=== PATIENT | female | born 1995 | race Caucasian/White ===

== ENCOUNTER → 2018-08-28 | Outpatient (CLI) | payer OTHER, BC ==
[~2018-08-28] MED LIST: ACET500T68 PO; BCP; HYDR-4309 PO; INSU300I SUBQ; LANI SUBQ; LOR5/325 PO; NO MEDS; NORG1TAB5 PO; NOVOLOG SUBQ; ONDA4TAB PO; OXYC-865 PO; PER PO
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
== END ==
LOC: RAD 10:23
PROVIDERS: ATTEND Physician Assistant
DX: M54.2 Cervicalgia (principal); M62.838 Other muscle spasm
CPT/HCPCS: 72040

== ENCOUNTER 2019-04-07 20:15 | Emergency (ER) | payer BC ==
[~2019-04-07 20:15] MED LIST changes: -HYDR-4309 PO; +HYDR-653 PO
[2019-04-07 20:29] VITALS: BP 134/77
[2019-04-07] MEDS ORDERED: ESCI20TA38 PO (20:36)
--- NOTE | 2019-04-07 20:39 | ER Report ---
History and Physical Time Seen By MD: 20:35 Hx. of Stated Complaint: TRIPPED ON SECOND BASE WHILE RUNNING IN SOFTBALL GAME. TWISTED LEFT KNEE HPI/ROS CHIEF COMPLAINT: Knee pain HISTORY OF PRESENT ILLNESS: This is a 23-year-old female who presents to the emergency department for knee pain. Patient states that about 45 minutes prior to arrival, she was playing softball, was rounding 2nd base, fell down landing on her left knee, she states "it felt like it came out of socket again back in". She also has mild tenderness to the left medial malleolus. No obvious deformities, no bruising, mild swelling to the left knee. No nausea or vomiting. No chest pain or shortness breath. REVIEW OF SYSTEMS: Respiratory: No cough, no dyspnea. Cardiovascular: No chest pain, no palpitations. Gastrointestinal: No vomiting, no abdominal pain. Musculoskeletal: As above. Allergies: Coded Allergies: No Known Drug Allergies (Verified , 04/07/19) Home Meds Reported Medications Escitalopram Oxalate (LEXAPRO) 20 Mg Tablet, 20 MG PO QDAY, TAB 04/07/19 Insulin Glargine,Hum.rec.anlog (Toujeo Solostar) 300 Unit/1 Ml Insuln.pen, 16 UNIT SUBQ QAM 10/07/16 Insulin Aspart (NOVOLOG) 100 Unit/Ml Soln, 100 UNIT SUBQ 09/17/15 Discontinued Scripts Oxycodone Hcl/Acetaminophen (PERCOCET 5-325 MG TABLET) 1 Each Tablet, 1 EACH PO Q4H PRN for PAIN, #20 Prov:JEN ALEJANDRO DO 10/07/16 Past Medical/Surgical History The patient has a past medical and surgical history of tonsillectomy, jaw fracture, type I diabetes, depression, anxiety. Reviewed Nurses Notes: Yes Hx Smoking: No Smoking Status: Never Smoker Constitutional Vital Sign - Last 24 Hours 04/07/19 20:29 Temp 99.3 Pulse 76 Resp 14 B/P (MAP) 134/77 Pulse Ox 95 O2 Delivery Room Air Physical Exam General Appearance: The patient is alert, has no immediate need for airway pro tection and no current signs of toxicity. Eyes: Pupils equal and round no injection. Respiratory: Chest is non tender, lungs are clear to auscultation. Cardiac: regular rate and rhythm. Gastrointestinal: Abdomen is soft and non tender, no masses, bowel sounds normal. Musculoskeletal: Neck: Neck is supple and non tender. Extremities positive straight leg raise on the left, pain to the lateral and medial knee, no obvious deformities, no crepitus, no pain over the tibial plateau. Pain to the left medial malleolus, no crepitus or deformities. Skin: No rashes or lesions. DIFFERENTIAL DIAGNOSIS: After history and physical exam differential diagnosis was considered for contusion, fracture, sprain anterior cruciate ligament, PCL tear. Medical Decision Making EKG/Imaging Imaging PATIENT NAME: Leticia Sen : 1995 MR: [id number] V: [id number] EXAM DATE: ORDERING PHYSICIAN: MAREN MAYEN TECHNOLOGIST: Location: [facility] [place] Patient: Leticia Sen : 1995 Visit/Account:[id number] Date of Sevice: 04/07/2019 Examination: KNEE 4 VIEW LEFT Comparison: None. History: fall, pain Findings: No fracture. Alignment and joint spaces are normal. No joint effusion. Soft tissues are unremarkable. IMPRESSION: Negative left knee. Report Dictated By: Tom Cruz MD at 04/07/2019 10:41 PM Report E-Signed By: Tom Cruz MD at 04/07/2019 10:42 PM WSN:[id number] ED Course/Re-evaluation ED Course The patient was admitted to room. A history and physical obtained. Differential diagnoses were considered. Patient was given 60 mg IM Norflex, 800mg by mouth ibuprofen. An x-ray of the left knee and ankle were obtained, both were negative for any acute osseous abnormalities. I did review the results with the patient and her family the bedside, I did place the patient in a knee immobilizer, she was given crutches and instructed to follow up with [facility] for reevaluation, possibly an MRI of the left knee. Patient expressed understanding and was discharged home. Decision to Disposition Date: April 07, 2019 Decision to Disposition Time: 22:49 Depart Departure Latest Vital Signs Vital Signs Date Time Temp Pulse Resp B/P (MAP) Pulse Ox O2 Delivery O2 Flow Rate FiO2 04/07/19 20:29 99.3 76 14 134/77 95 Room Air Impression: Primary Impression: Left knee injury Additional Impression: Left ankle injury Condition: Improved Disposition: HOME OR SELF-CARE Referrals: BASILIA ENCISO (PCP) CHIQUITA LI MD Patient Instructions: Ankle Sprain (ED), Knee Pain (ED) Additional Instructions: Please contact Dr. Li at [facility] tomorrow for a follow up appointment. They may want to MRI the knee. Please keep the brace on until you follow up with [facility]. Take Ibuprofen or Tylenol as needed for pain. Keep the leg elevated as much as possible, this will help with swelling and pain. Use the crutches and only touch down with the toes on the foot until cleared by ortho. Return to the ED for any other concerns or worsening symptoms. Problem Qualifiers Primary Impression: Left knee injury Encounter type: initial encounter Qualified Codes: S89.92XA - Unspecified injury of left lower leg, initial encounter Additional Impression: Left ankle injury Encounter type: initial encounter Qualified Codes: S99.912A - Unspecified injury of left ankle, initial encounter MAREN MAYEN-IDANIA April 07, 2019 20:39
[2019-04-07] MEDS ORDERED: ORPHENADRINE 60MG/2ML INJ IM ONE (21:10)
[2019-04-07] MEDS ORDERED: IBUPROFEN 800 MG TAB PO ONE (22:25)
--- NOTE | 2019-04-07 22:46 | RADIOLOGY IMAGING REPORT ---
FACILITY: [facility] PATIENT NAME: Leticia Sen : 1995 MR: [id number] V: [id number] EXAM DATE: ORDERING PHYSICIAN: MAREN MAYEN TECHNOLOGIST: Location: [facility] Patient: Leticia Sen : 1995 Visit/Account:[id number] Date of Sevice: 04/07/2019 Examination: KNEE 4 VIEW LEFT Comparison: None. History: fall, pain Findings: No fracture. Alignment and joint spaces are normal. No joint effusion. Soft tissues are unr emarkable. IMPRESSION: Negative left knee. Report Dictated By: Tom Cruz MD at 04/07/2019 10:41 PM Report E-Signed By: Tom Cruz MD at 04/07/2019 10:42 PM WSN:[id number]
--- NOTE | 2019-04-07 22:51 | RADIOLOGY IMAGING REPORT ---
FACILITY: [facility] PATIENT NAME: Leticia Sen : 1995 MR: [id number] V: [id number] EXAM DATE: ORDERING PHYSICIAN: MAREN MAYEN TECHNOLOGIST: Location: [facility] - [place] Patient: Leticia Sen : 1995 Visit/Account:[id number] Date of Sevice: 04/07/2019 Examination: ANKLE 3 VIEW MIN LEFT Comparison: 10/07/2016. History: Fall. Medial ankle pain. Findings: Only seen on the lateral projection is an age-indeterminate minimally displaced osseous fra gment along the proximal fifth metatarsal. No other potential fracture or malalignment is identified. Joint spaces are within normal limits. Soft tissues are unremarkable. IMPRESSION: 1. Age-indeterminate minimally displaced osseous fragment along the left proximal fifth metatarsal. C orrelation with the site of patient's pain is recommended to further evaluate for the presence of an acute injury. 2. No ankle fracture or malalignment is otherwise identified. Results were discussed with MAREN MAYEN at 04/07/2019 10:46 PM. Report Dictated By: Tom Cruz MD at 04/07/2019 10:42 PM Report E-Signed By: Tom rCuz MD at 04/07/2019 10:47 PM WSN:[id number]
== END 2019-04-07 22:55 | disposition home or self-care (01) ==
LOC: ER 21:01
DX: S89.92XA Unspecified injury of left lower leg, initial encounter (principal); S99.912A Unspecified injury of left ankle, initial encounter; W18.30XA Fall on same level, unspecified, initial encounter; Y93.64 Activity, baseball
CPT/HCPCS: 73564; 73610; 96372; 99284; J2360; L1830